=== PATIENT | male | born 1945 | race Caucasian/White ===

== ENCOUNTER → 2016-04-16 | Outpatient (CLI) | payer OTHER | END | disposition home or self-care (01) | LOC: CDC 15:42 | DX: Z01.810 Encounter for preprocedural cardiovascular examination (principal); N40.0 Benign prostatic hyperplasia without lower urinary tract symptoms; N32.0 Bladder-neck obstruction | CPT/HCPCS: 93000 ==

== ENCOUNTER 2016-04-20 13:39 | Observation (INO) | payer OTHER ==
[~2016-04-20] VITALS: Ht 182.9 cm; Wt 126.5 kg
[2016-04-20 15:21] LABS: EOSINOPHIL (%) 1.3 % (0-5); EOSINOPHIL COUNT 0.2 K/uL (0-0.3); HEMATOCRIT 34.5 % (38.0-50.0); IMMATURE GRANULOCYTE (%) 0.3 % (0.0-0.7); IMMATURE GRANULOCYTE COUNT 0.4 K/uL; LYMPHOCYTE COUNT 2.1 K/uL (1.0-2.8); MCH 25.5 PG (29.0-34.0); MCHC 32.2 G/DL (30.0-36.0); MCV 79.3 FL (86-99); MEAN PLAT.VOLUME 9.7 uM^3 (9.0-12.4); MONOCYTE (%) 8.9 % (3-12); MONOCYTE COUNT 1.2 K/uL (0-0.8); NEUTROPHIL (%) 73.9 % (45-76); NEUTROPHIL COUNT 10.1 K/uL (1.8-6.4); PLATELET COUNT 270 K/uL (156-360); RBC DIS.WIDTH-CV 15.4 % (11.8-14.6); RBC DIS.WIDTH-SD 43.4 % (39-53); RED BLOOD COUNT 4.35 M/uL (4.00-5.50)
[2016-04-20 15:27] LABS: WHITE BLOOD COUNT 13.7 K/uL (4.1-10.2)
[2016-04-20 15:35] LABS: CHLORIDE 108 mEq/L (99-109); POTASSIUM 4.4 mEq/L (3.7-5.4); SODIUM 139 mEq/L (136-147)
[2016-04-20 15:37] LABS: GLUCOSE 107 mg/dL (70-99)
[2016-04-20 15:38] LABS: ANION GAP 10 MEQ/L (2-14)
[2016-04-20 15:39] LABS: TOTAL BILIRUBIN 0.5 mg/dL (0.0-1.0)
[2016-04-20 15:41] LABS: ALKALINE PHOSPHATASE 79 IU/L (3-129); GFR ESTIMATE (CALCULATED) 49 mL/min/
[2016-04-20 15:42] LABS: UREA NITROGEN (BUN) 33 mg/dL (9-23)
[2016-04-20 16:12] LABS: C-REACTIVE PROTEIN 73.5 MG/L (0-10); SAMPLE HEMOLYSIS CHECK 0; SAMPLE ICTERIC CHECK 0; SAMPLE LIPEMIA CHECK 0
[2016-04-20] MEDS ORDERED: PERCOCET 5/31 TABLET PO (18:16)
[2016-04-20] MEDS ORDERED: ATORVASTATIN CA40 MG PO (18:48)
[2016-04-20] MEDS ORDERED: CLOTRIMAZOLE-BE15 GM TP (18:48)
[2016-04-20] MEDS ORDERED: JANUMET 50/11 TABLET PO (18:48)
[2016-04-20] MEDS ORDERED: TAMSULOSIN HCL0.4 MG PO (18:48)
[2016-04-20] MEDS ORDERED: GLIPIZIDE ER2.5 MG PO (18:49)
[2016-04-20] MEDS ORDERED: TUMERIC PO (18:49)
[2016-04-20 22:17] LABS: ADD MIUA? NO; BILIRUBIN NEGATIVE; BLOOD NEGATIVE; COLOR YELLOW ((YELLOW)); GLUCOSE (STRIP) NEGATIVE; KETONES NEGATIVE; LEUKOCYTES NEGATIVE; NITRITE NEGATIVE; PROTEIN (STRIP) NEGATIVE; SPECIFIC GRAVITY 1.026 (1.000-1.030); UCUL ADDED? NO; UROBILINOGEN 0.2 MG/DL (0.2-1.0)
[2016-04-21 01:38] VITALS: BP 141/66
[2016-04-21 04:22] VITALS: BP 130/63
[2016-04-21 06:07] LABS: EOSINOPHIL (%) 1.6 % (0-5); EOSINOPHIL COUNT 0.2 K/uL (0-0.3); HEMATOCRIT 31.8 % (38.0-50.0); IMMATURE GRANULOCYTE (%) 0.4 % (0.0-0.7); LYMPHOCYTE COUNT 1.6 K/uL (1.0-2.8); MCH 25.3 PG (29.0-34.0); MCHC 31.4 G/DL (30.0-36.0); MCV 80.5 FL (86-99); MEAN PLAT.VOLUME 9.9 uM^3 (9.0-12.4); MONOCYTE (%) 10.1 % (3-12); MONOCYTE COUNT 1.1 K/uL (0-0.8); NEUTROPHIL (%) 73.1 % (45-76); NEUTROPHIL COUNT 8.2 K/uL (1.8-6.4); PLATELET COUNT 210 K/uL (156-360); RBC DIS.WIDTH-CV 15.5 % (11.8-14.6); RBC DIS.WIDTH-SD 46.3 % (39-53); RED BLOOD COUNT 3.95 M/uL (4.00-5.50); WHITE BLOOD COUNT 11.2 K/uL (4.1-10.2)
[2016-04-21 06:29] LABS: ANION GAP 6 MEQ/L (2-14); CHLORIDE 108 MEQ/L (99-109); GFR ESTIMATE (CALCULATED) 49 mL/min/; GLUCOSE 129 mg/dL (70-99); POTASSIUM 4.6 MEQ/L (3.7-5.4); SAMPLE HEMOLYSIS CHECK 0; SAMPLE ICTERIC CHECK 0; SAMPLE LIPEMIA CHECK 0; SODIUM 140 MEQ/L (136-147); UREA NITROGEN (BUN) 26 mg/dL (9-23)
[2016-04-21 08:16] VITALS: BP 150/66
[2016-04-21 12:08] VITALS: BP 121/59
[2016-04-21 15:59] VITALS: BP 135/64
[2016-04-21 20:30] VITALS: BP 137/71
[2016-04-22 00:26] VITALS: BP 162/60
[2016-04-22 04:20] VITALS: BP 137/72
[2016-04-22 06:29] LABS: GFR ESTIMATE (CALCULATED) 53 mL/min/
[2016-04-22 08:39] LABS: ANION GAP 10 MEQ/L (2-14); CHLORIDE 108 MEQ/L (99-109); POTASSIUM 4.7 MEQ/L (3.7-5.4); SODIUM 140 MEQ/L (136-147); UREA NITROGEN (BUN) 30 mg/dL (9-23)
[2016-04-22 08:41] LABS: GLUCOSE 269 mg/dL (70-99)
[2016-04-22 08:43] LABS: HEMATOCRIT 32.8 % (38.0-50.0); MCH 25.4 PG (29.0-34.0); MCHC 31.7 G/DL (30.0-36.0); MEAN PLAT.VOLUME 10.5 uM^3 (9.0-12.4); PLATELET COUNT 268 K/uL (156-360); RBC DIS.WIDTH-CV 15.5 % (11.8-14.6); RBC DIS.WIDTH-SD 45.4 % (39-53); WHITE BLOOD COUNT 12.7 K/uL (4.1-10.2)
[2016-04-22 08:45] VITALS: BP 144/67
[2016-04-22 08:51] LABS: POINT-OF-CARE METER ID UU13113831
[2016-04-22] MEDS ORDERED: METFORMIN HCL1000 MG PO (11:33)
[2016-04-22] MEDS ORDERED: PREDNISONE10 MG PO (11:33)
[2016-04-22] MEDS ORDERED: Colchicine,Colcrys PO (11:33)
== END 2016-04-22 14:31 | disposition home or self-care (01) ==
LOC: EME 13:39 → EXP 13:39 → EDOF 20:51 → 5WEST 20:51
PROVIDERS: Hospitalist; Nurse Practitioner Adult Health; Physician Assistant
DX: L03.113 Cellulitis of right upper limb (principal); M10.021 Idiopathic gout, right elbow; M25.421 Effusion, right elbow; M25.521 Pain in right elbow; M25.531 Pain in right wrist; I10 Essential (primary) hypertension; E11.9 Type 2 diabetes mellitus without complications; Z83.3 Family history of diabetes mellitus; Z82.49 Family history of ischemic heart disease and other diseases of the circulatory system
CPT/HCPCS: 73030; 73080; 73201; 80048; 80053; 81003; 82565; 82948; 83605; 85025; 85027; 86140; 87040; 93971; 99281; 99284; G0378; J1650; J2543; J2930; J3010; J3370; J7050; J7120

== ENCOUNTER 2017-05-25 18:24 | Inpatient (IN) | payer OTHER ==
[~2017-05-25] VITALS: Ht 182.9 cm; Wt 125.1 kg
[~2017-05-25 18:24] MED LIST: ATORVASTATIN CA40 MG PO; CLOTRIMAZOLE-BE15 GM TP; Colchicine,Colcrys PO; GLIPIZIDE ER2.5 MG PO; JANUMET 50/11 TABLET PO; METFORMIN HCL1000 MG PO; PERCOCET 5/31 TABLET PO; PREDNISONE10 MG PO; TAMSULOSIN HCL0.4 MG PO; TUMERIC PO
[2017-05-25 19:38] LABS: APPEARANCE SL.HAZY ((CLEAR)); BILIRUBIN NEGATIVE; BLOOD NEGATIVE; COLOR YELLOW ((YELLOW)); GLUCOSE (STRIP) NEGATIVE; KETONES 5; LEUKOCYTES TRACE; NITRITE NEGATIVE; PROTEIN (STRIP) 30; SPECIFIC GRAVITY 1.019 (1.000-1.030); UROBILINOGEN 0.2 MG/DL (0.2-1.0)
[2017-05-25 19:46] LABS: BACTERIA NONE SEEN /HPF; EPITHELIAL CELLS RARE /HPF; MUCUS TRACE /LPF; RED BLOOD CELLS 0-5 /HPF (0-5); UCUL ADDED? YES
[2017-05-25 20:06] LABS: HEMATOCRIT 32.5 % (38.0-50.0); HEMOGLOBIN 10.5 G/DL (12.5-16.6); MCH 26.3 PG (29.0-34.0); MCHC 32.3 G/DL (30.0-36.0); MCV 81.3 FL (86-99); PLATELET COUNT 255 K/uL (156-360); RBC DIS.WIDTH-CV 14.7 % (11.8-14.6); RBC DIS.WIDTH-SD 43.5 % (39-53); WHITE BLOOD COUNT 22.9 K/uL (4.1-10.2)
[2017-05-25 20:23] LABS: CHLORIDE 106 mEq/L (99-109); POTASSIUM 4.6 mEq/L (3.7-5.4); SODIUM 137 mEq/L (136-147)
[2017-05-25 20:25] LABS: GLUCOSE 163 mg/dL (70-99)
[2017-05-25 20:29] LABS: CREATININE 1.7 mg/dL (0.6-1.3); GFR ESTIMATE (CALCULATED) 43 mL/min/ (58.99-99999); UREA NITROGEN (BUN) 23 mg/dL (9-23)
[2017-05-25] MEDS ORDERED: GOLD BOND MEDI283 G1 TP (22:56)
[2017-05-25] MEDS ORDERED: FEOSOL325 MG PO (22:57)
[2017-05-25] MEDS ORDERED: ROCALTROL0.25 MCG PO (22:58)
[2017-05-25] MEDS ORDERED: ULORIC40 MG PO (22:59)
[2017-05-25] MEDS ORDERED: CARDURA2 M1 PO (23:00)
[2017-05-26] VITALS (7 sets, daily range): BP systolic 107–154; BP diastolic 52–78
[2017-05-26 04:49] LABS: BASOPHIL (%) 0.1 % (0-1); EOSINOPHIL (%) 0 % (0-5); HEMATOCRIT 30.1 % (38.0-50.0); HEMOGLOBIN 9.6 G/DL (12.5-16.6); IMMATURE GRANULOCYTE (%) 1.5 % (0.0-0.7); LYMPHOCYTE (%) 3.6 % (15-42); LYMPHOCYTE COUNT 0.7 K/uL (1.0-2.8); MCH 25.9 PG (29.0-34.0); MCHC 31.9 G/DL (30.0-36.0); MCV 81.4 FL (86-99); MONOCYTE (%) 4.1 % (3-12); MONOCYTE COUNT 0.8 K/uL (0-0.8); NEUTROPHIL (%) 90.7 % (45-76); NEUTROPHIL COUNT 16.9 K/uL (1.8-6.4); PLATELET COUNT 219 K/uL (156-360); RBC DIS.WIDTH-CV 14.8 % (11.8-14.6); RBC DIS.WIDTH-SD 43.6 % (39-53); WHITE BLOOD COUNT 18.7 K/uL (4.1-10.2)
[2017-05-26 05:05] LABS: CHLORIDE 105 mEq/L (99-109); POTASSIUM 4.1 mEq/L (3.7-5.4); SODIUM 137 mEq/L (136-147)
[2017-05-26 05:07] LABS: GLUCOSE 135 mg/dL (70-99)
[2017-05-26 05:11] LABS: CREATININE 1.8 mg/dL (0.6-1.3); GFR ESTIMATE (CALCULATED) 40 mL/min/ (58.99-99999)
[2017-05-26 05:12] LABS: UREA NITROGEN (BUN) 27 mg/dL (9-23)
[2017-05-27 05:34] VITALS: BP 120/61
[2017-05-27 08:20] VITALS: BP 122/58
[2017-05-27 11:16] VITALS: BP 119/64
[2017-05-27 15:08] LABS: HEMATOCRIT 28.9 % (38.0-50.0); MCH 25.7 PG (29.0-34.0); MCHC 31.1 G/DL (30.0-36.0); MCV 82.6 FL (86-99); PLATELET COUNT 218 K/uL (156-360); RBC DIS.WIDTH-SD 45.1 % (39-53); WHITE BLOOD COUNT 13.6 K/uL (4.1-10.2)
[2017-05-27 15:14] VITALS: BP 140/82
[2017-05-27 15:34] LABS: CHLORIDE 105 MEQ/L (99-109); CREATININE 1.5 MG/DL (0.6-1.3); GFR ESTIMATE (CALCULATED) 49 mL/min/ (58.99-99999); GLUCOSE 137 mg/dL (70-99); POTASSIUM 4.2 MEQ/L (3.7-5.4); SODIUM 137 MEQ/L (136-147); UREA NITROGEN (BUN) 28 mg/dL (9-23)
[2017-05-27 23:04] VITALS: BP 129/72
[2017-05-28 07:02] LABS: HEMATOCRIT 28.7 % (38.0-50.0); HEMOGLOBIN 8.9 G/DL (12.5-16.6); MCH 25.3 PG (29.0-34.0); MCV 81.5 FL (86-99); PLATELET COUNT 238 K/uL (156-360); RBC DIS.WIDTH-CV 14.9 % (11.8-14.6); RBC DIS.WIDTH-SD 44.7 % (39-53); RED BLOOD COUNT 3.52 M/uL (4.00-5.50); WHITE BLOOD COUNT 11.9 K/uL (4.1-10.2)
[2017-05-28 07:27] LABS: CHLORIDE 106 MEQ/L (99-109); CREATININE 1.3 MG/DL (0.6-1.3); GFR ESTIMATE (CALCULATED) 58 mL/min/ (58.99-99999); GLUCOSE 128 mg/dL (70-99); POTASSIUM 4.4 MEQ/L (3.7-5.4); SODIUM 139 MEQ/L (136-147); UREA NITROGEN (BUN) 26 mg/dL (9-23)
[2017-05-28 08:00] VITALS: BP 195/81
[2017-05-28 10:20] VITALS: BP 120/60
[2017-05-28] MEDS ORDERED: PEN-VEE K,VEET500 MG PO (11:29)
== END 2017-05-28 14:37 | disposition home or self-care (01) | DRG 872 ==
LOC: EME 18:24 → EDOF 05-26 00:35 → 3EAST 05-26 00:35 → ENRESERV 05-26 00:36 → 3EAST 05-26 01:34 → ENPENDDIS 05-28 11:31 → 3EAST 05-28 14:37
PROVIDERS: Emergency Medicine; Hospitalist; Physician Assistant
DX: A40.0 Sepsis due to streptococcus, group A (principal); L03.116 Cellulitis of left lower limb; I12.9 Hypertensive chronic kidney disease with stage 1 through stage 4 chronic kidney disease, or unspecified chronic kidney disease; N18.3 Chronic kidney disease, stage 3 (moderate); E66.01 Morbid (severe) obesity due to excess calories; Z68.37 Body mass index [BMI] 37.0-37.9, adult; E11.22 Type 2 diabetes mellitus with diabetic chronic kidney disease; E78.5 Hyperlipidemia, unspecified; D50.9 Iron deficiency anemia, unspecified; M10.9 Gout, unspecified; I83.90 Asymptomatic varicose veins of unspecified lower extremity; Z83.3 Family history of diabetes mellitus
CPT/HCPCS: 71046; 80048; 81003; 82948; 83605; 85025; 85027; 87040; 87070; 87075; 87077; 87086; 87147; 87186; 87205; 87502; 87801; 99281; 99284; J0295; J0690; J1644; J3370; J7030; J7050